=== PATIENT | female | born 1995 | race Two or more races ===

== ENCOUNTER 2024-06-26 13:20 | Inpatient (IN) ==
[2024-06-26] MEDS: ALBUT/IPRATROP 3MG/0.5MG NEB 3 ML VIAL NEB STA ×2 (14:10→18:14)
[2024-06-26 14:38] LABS: Hemoglobin 14.8 g/dl (12.0-16.0); Mean Corpuscular Hemoglobin 30.4 pg (25.0-34.0); Mean Corpuscular Hgb Conc 34.4 g/dL (32.0-36.0); Mean Corpuscular Volume 88.3 fL (80.0-100.0); Mean Platelet Volume 12.1 fL (9.4-12.4); Platelet Count 257 K/uL (130-400); RDW Coefficient of Variation 12.9 % (11.5-14.5); RDW Standard Deviation 41.1 fL (36.4-46.3); Red Blood Count 4.87 M/uL (4.20-5.40); White Blood Count 31.86 K/ul (4.8-10.8)
--- NOTE | 2024-06-26 14:38 | Emergency Department Note ---
ED Provider Note History of Present Illness Chief Complaint: Shortness of Breath/Dyspnea Stated Complaint: SOB/TROUBLE BREATHING, CHEST PAIN Time Seen by Provider: 06/26/24 13:51 Source: patient Mode of arrival: ambulatory Limitations: no limitations This patient is a 28-year-old female who presents to the emergency department for evaluation of shortness of breath/chest pain. Patient reports that she woke up around 4 AM this morning with some central chest pain. At that time she noticed it was difficult for her to breathe. She states that she used her inhaler and things seemed to settle down at the time, but returned after she woke up and tried to go to work. She states that the symptoms have been constant and she has trouble walking short distances due to the shortness of breath. She reports that she received a breathing treatment at an outpatient office and they told her to come to the ER. She denies any history of asthma or other pulmonary issues. She states that she was seen here about 2 weeks ago due to an upper respiratory infection/bronchitis and was treated with antibiotics. She is still on steroids for this currently. She was feeling better for a while. She denies any recent long travel. No history of blood clots or cardiac history. She has not noticed any fevers. Home Medications Medication Instructions Recorded Confirmed Type albuterol sulfate 90 mcg/actuation 2 puff inhalation Q4R PRN 06/28/24 Rx aerosol inhaler (Ventolin HFA) shortness of breath or wheezing #6.7 grams budesonide-formoterol HFA 160 2 inh inhalation BID #10.2 grams 06/28/24 Rx mcg-4.5 mcg/actuation aerosol inhaler (Symbicort) cetirizine 10 mg tablet 10 mg PO DAILY #30 tabs 06/28/24 Rx ipratropium 0.5 mg-albuterol 3 mg 3 ml inhalation Q6H PRN wheezing 06/28/24 Rx (2.5 mg base)/3 mL nebulization #90 mL soln montelukast 10 mg tablet 10 mg PO HS #30 tabs 06/28/24 Rx prednisone 10 mg tablet 10 mg PO DIRECTED #30 tabs 06/28/24 Rx Allergies Allergy/AdvReac Type Severity Reaction Status Date / Time nickel Allergy Rash Verified 06/26/24 17:37 Past Med/Surg History Problem List (Updated 06/27/24 @ 10:55 by Tanner Gannon MD) Subacute cough Asthma exacerbation History of frequent upper respiratory infection Wheezing Medical History No pertinent past medical history Social History Smoking Status: Never smoker Hx Alcohol Use: No Hx Substance Use: No Preferred Language: Urdu Communication Ability: Effective 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 Beliefs That Will Affect Care: None Current Living Situation: Spouse Feels Safe at Home: Yes Assistive Devices: Glasses Physical Exam Vital Signs Vital Signs - 24 hr 06/26/24 13:21 06/26/24 13:21 06/26/24 13:51 Temperature 36.6 C Temperature Source Temporal Artery Scan Pulse Rate 100 H Pulse Rate from SpO2 Sensor Respiratory Rate 18 Respiratory Effort / Characteristics Non-Labored Spontaneous Respiratory Depth Normal Respiratory Pattern Regular Blood Pressure 111/70 Blood Pressure Mean 83 Pulse Oximetry 97 Oxygen Delivery Method Room Air Room Air Sepsis Recent Fever Within 48 Hours No Sepsis New/Unexplained Change in Mental Status N/A Sepsis Action Taken by Nursing No Action Required 06/26/24 14:05 06/26/24 14:33 06/26/24 14:33 Temperature Temperature Source Pulse Rate 96 H 101 H Pulse Rate from SpO2 Sensor 103 H Respiratory Rate 19 Respiratory Effort / Characteristics Respiratory Depth Respiratory Pattern Blood Pressure Blood Pressure Mean Pulse Oximetry 95 96 Oxygen Delivery Method Room Air Sepsis Recent Fever Within 48 Hours Sepsis New/Unexplained Change in Mental Status Sepsis Action Taken by Nursing VITALS: Vitals are noted on the nurse's note and reviewed by myself. GENERAL: This is a 28-year-old female, uncomfortable appearing, tachypneic. SKIN: The skin was without rashes. EARS: External auditory canals clear, tympanic membranes pearly mason without erythema or effusion bilaterally. EYES: Pupils equal round and reactive to light and accommodation. NOSE: Patent, turbinates without inflammation or discharge. MOUTH: Mucous membranes moist. Tonsils are not enlarged. Pharynx without erythema or exudate. NECK: Supple without nuchal rigidity. No lymphadenopathy. HEART: Regular rate and rhythm without murmurs gallops or rubs. LUNGS: Tachypneic. Lungs are clear to auscultation bilaterally without wheezes, rales or rhonchi. No retractions or accessory muscle use. NEURO: Patient was alert and oriented to person place and time. Course Administered Medications Discontinued Medications Acetaminophen (Acetaminophen 500 Mg Tab) 1,000 mg PO NOW STA Stop: 06/26/24 16:04 Last Admin: 06/26/24 16:07 Dose: 1,000 mg Documented By: AGUSTO Albuterol (Albut/Ipratrop 3mg/0.5mg Neb 3 Ml Vial) 3 ml NEB NOW STA; Protocol Stop: 06/26/24 14:02 Last Admin: 06/26/24 14:10 Dose: 3 ml Documented By: LANDON Albuterol (Albut/Ipratrop 3mg/0.5mg Neb 3 Ml Vial) 3 ml NEB NOW STA; Protocol Stop: 06/26/24 18:05 Last Admin: 06/26/24 18:14 Dose: 3 ml Documented By: LANDON Albuterol (Albut/Ipratrop 3mg/0.5mg Neb 3 Ml Vial) 3 ml NEB Q6R YULY; Protocol Stop: 07/26/24 20:52 Last Admin: 06/28/24 06:57 Dose: 3 ml Documented By: Admin: 06/28/24 00:38 Dose: 3 ml Documented By: Admin: 06/27/24 19:34 Dose: Not Given Documented By: Admin: 06/27/24 13:30 Dose: 3 ml Documented By: HERB(2) Admin: 06/27/24 07:15 Dose: 3 ml Documented By: HERB(2) Admin: 06/27/24 01:43 Dose: 3 ml Documented By: Admin: 06/26/24 21:15 Dose: 3 ml Documented By: TATE Azithromycin (Azithromycin 250 Mg Tab) 500 mg PO NOW ONE Stop: 06/26/24 18:12 Last Admin: 06/26/24 18:40 Dose: 500 mg Documented By: LANDON Azithromycin (Azithromycin 250 Mg Tab) [facility] [place] Stop: 07/01/24 08:59 Last Admin: 06/28/24 08:03 Dose: 250 mg Documented By: Admin: 06/27/24 07:29 Dose: 250 mg Documented By: CHAPARRO Budesonide (Budesonide 0.5 Mg/2 Ml Vial (Pulmicort)) 0.5 mg NEB BIDR [facility] Stop: 07/27/24 18:59 Last Admin: 06/28/24 06:57 Dose: 0.5 mg Documented By: Admin: 06/27/24 19:34 Dose: 0.5 mg Documented By: HERB Budesonide (Budesonide 0.5 Mg/2 Ml Vial (Pulmicort)) 0.5 mg NEB ONE ONE Stop: 06/27/24 11:01 Last Admin: 06/27/24 11:28 Dose: Not Given Documented By: EMCoco(2) Cetirizine HCl (Cetirizine Hcl 10 Mg Tablet) 10 mg PO DAILY [facility] Stop: 07/27/24 11:14 Last Admin: 06/28/24 08:03 Dose: 10 mg Documented By: Admin: 06/27/24 12:05 Dose: 10 mg Documented By: CHAPARRO Dextromethorphan Polymer Complex (Dextromethorphan Polymr Complx 30 Mg/5 Ml Udp) 30 mg PO ONE STA Stop: 06/26/24 18:20 Last Admin: 06/26/24 18:56 Dose: 30 mg Documented By: LANDON Fluticasone/Vilanterol (Fluticasone/Vilanterol 100/25mcg 14 Puffs/Inhaler) 1 puffs INH DAILY [facility]; Protocol Stop: 07/27/24 08:59 Last Admin: 06/27/24 07:29 Dose: 1 puffs Documented By: CHAPARRO Formoterol Fumarate (Formoterol 20 Mcg/2 Ml Vial) 20 mcg NEB BIDR YULY Stop: 07/27/24 10:59 Last Admin: 06/28/24 06:57 Dose: 20 mcg Documented By: Admin: 06/27/24 19:34 Dose: 20 mcg Documented By: Admin: 06/27/24 11:28 Dose: Not Given Documented By: EMCoco(2) Guaifenesin/Codeine Phosphate (Guaifenesin/Codeine 100mg/10mg 5ml Udc) 5 ml PO Q6H PRN PRN Reason: Cough Stop: 07/27/24 10:54 Last Admin: 06/27/24 21:15 Dose: 5 ml Documented By: Admin: 06/27/24 11:04 Dose: 5 ml Documented By: CHAPARRO Cefepime HCl (Maxipime 2000mg) 2,000 mg in 20 mls @ 5 mls/min IV NOW STA Stop: 06/26/24 16:24 Last Admin: 06/26/24 16:55 Dose: 5 mls/min Documented By: LANDON Sodium Chloride (Nss) 1,000 mls @ 999 mls/hr IV .Q1H1M ONE Stop: 06/26/24 17:50 Last Infusion: 06/26/24 18:43 Dose: Infused Documented By: Admin: 06/26/24 16:54 Dose: 999 mls/hr Documented By: LANDON Magnesium Sulfate/Dextrose (Magnesium Sulfate / D5w) 1 gm in 100 mls @ 50 mls/hr IV Q2H YULY Stop: 06/26/24 21:44 Last Infusion: 06/26/24 22:24 Dose: Infused Documented By: Admin: 06/26/24 19:50 Dose: 50 mls/hr Documented By: Infusion: 06/26/24 19:50 Dose: Infused Documented By: Admin: 06/26/24 18:03 Dose: 50 mls/hr Documented By: LANDON Potassium Chloride (K Brody / Wtr) 10 meq in 100 mls @ 100 mls/hr IV Q1H YULY Stop: 06/26/24 20:44 Last Infusion: 06/26/24 23:19 Dose: Infused Documented By: Admin: 06/26/24 22:19 Dose: 100 mls/hr Documented By: Infusion: 06/26/24 20:33 Dose: Infused Documented By: Admin: 06/26/24 19:10 Dose: 100 mls/hr Documented By: Infusion: 06/26/24 19:03 Dose: Infused Documented By: Admin: 06/26/24 18:03 Dose: 100 mls/hr Documented By: LANDON Methylprednisolone 40 mg/ (Syringe) 0.64 mls @ 1.5 mls/min IV BID YULY Stop: 07/26/24 20:59 Last Admin: 06/28/24 08:03 Dose: 1.5 mls/min Documented By: Admin: 06/27/24 21:15 Dose: 1.5 mls/min Documented By: Admin: 06/27/24 07:29 Dose: 1.5 mls/min Documented By: Admin: 06/26/24 22:28 Dose: 1.5 mls/min Documented By: FABIO Ioversol (Optiray 320 125ml) 120 ml IV ONCE ONE Stop: 06/26/24 15:06 Last Admin: 06/26/24 15:06 Dose: 120 ml Documented By: WYATT Menthol (Cough Drop (Sugar Free) Marissa 24 Marissa/1 Box) Confirm Administered Dose 24 marissa BUCCAL .STK-MED ONE Stop: 06/27/24 11:04 Last Admin: 06/27/24 11:04 Dose: 24 marissa Documented By: CHAPARRO Montelukast Sodium (Montelukast Sodium 10 Mg Tablet) 10 mg PO HS YULY Stop: 07/27/24 20:59 Last Admin: 06/27/24 21:15 Dose: 10 mg Documented By: BG Phenol (Chloraseptic (Phenol) 1.4% Soln 180 Ml Btl) 1 sprays MT Q2H PRN PRN Reason: throat pain Stop: 07/28/24 07:27 Last Admin: 06/28/24 09:37 Dose: 1 sprays Documented By: JESSICA Potassium Chloride (Potassium Chloride Crtab 20 Meq Tabcr) 40 meq PO NOW STA Stop: 06/26/24 17:46 Last Admin: 06/26/24 18:02 Dose: 40 meq Documented By: LANDON Medical Decision Making Differential Diagnosis Reactive airway disease, pneumonia, pneumothorax, COPD, CHF, infections, cardiac ischemia, pulmonary embolism, musculoskeletal, gastrointestinal, as well as other pathologies. Laboratory Data Attestation: I reviewed the patient's lab results. 06/28/24 09:01 06/28/24 09:01 Lab Results 06/26/24 06/26/24 Range/Units 14:10 16:55 Procalcitonin 0.16 (0-0.5) ng/ml Urine Color Yellow Urine Appearance Clear (Clear) Urine pH 7.5 (4.5-7.5) Ur Specific [place] > 1.045 H (1.000-1.030) Urine Protein Negative (Negative) Urine Glucose (UA) Negative (Negative) Urine Ketones Negative (Negative) Urine Blood Negative (Negative) Urine Nitrite Negative (Negative) Urine Bilirubin Negative (Negative) Urine Urobilinogen Negative (Negative) Ur Leukocyte Esterase Negative (Negative) Adenovirus (PCR) Not Detected (NotDetected) B. pertussis DNA (PCR) Not Detected (NotDetected) B.parapertussis DNA PCR Not Detected (NotDetected) C. pneumoniae DNA (PCR) Not Detected (NotDetected) Coronavirus OC43 (PCR) Not Detected (NotDetected) Coronavirus HKU1 (PCR) Not Detected (NotDetected) Coronavirus 229E (PCR) Not Detected (NotDetected) SARS-CoV-2 (PCR) Not Detected (NotDetected) Coronavirus NL63 (PCR) Not Detected (NotDetected) Human Metapneumovir PCR Not Detected (NotDetected) Influenza Type A (PCR) Not Detected (NotDetected) Influenza Type B (PCR) Not Detected (NotDetected) M. pneumoniae (PCR) Not Detected (NotDetected) Parainfluenza 1 (PCR) Not Detected (NotDetected) Parainfluenza 2 (PCR) Not Detected (NotDetected) Parainfluenza 3 (PCR) Not Detected (NotDetected) Parainfluenza 4 (PCR) Not Detected (NotDetected) RSV (PCR) Not Detected (NotDetected) Entero/Rhino (PCR) Not Detected (NotDetected) Imaging Data Attestation: I personally reviewed and interpreted this imaging study as follows: Radiologist's Impression: Chest CTA 06/26/24 14:00 CT angio chest PE protocol CT DOSE: 503.29 mGy.cm HISTORY: 28 years-old Female with dyspnea, chest pain, tachycardia. Acute shortness breath with tachycardia and chest pain TECHNIQUE: Multiple CTA images of the chest were obtained after the intravenous administration of 120 ml Optiray. Coronal and sagittal MIPS were obtained from the axial data set and were submitted for review. All measurements were obtained according to NASCET criteria. A dose lowering technique was utilized adhering to the principles of ALARA. COMPARISON: Chest radiograph 06/11/2024 FINDINGS: CTA: Heart is normal in size. No pericardial effusion. Unremarkable thoracic aorta. The segmental and subsegmental pulmonary arterial branches are not well evaluated secondary to respiratory motion artifact and contrast bolus timing. No central pulmonary emboli are seen. CT CHEST: Unremarkable thyroid. No pathologically enlarged lymph nodes. The lungs are hypoinflated. Small pleural effusions. No pneumothorax. Bibasilar linear consolidative and patchy groundglass densities. Central airways are patent. No acute upper abdominal abnormality. Unremarkable soft tissues. No acute fracture. IMPRESSION: 1. Limited exam as above. No central pulmonary emboli identified. 2. Small pleural effusions with bibasilar opacities favoring atelectasis. Pneumonia considered less likely. 3. No lymphadenopathy. ACT 112: Negative or not required by law. The above report was generated using voice recognition software. It may contain grammatical, syntax or spelling errors. Electronically signed by: Tobin Hassan M.D. 06/26/2024 3:29 PM MDM Narrative This patient is a 28-year-old female who presents to the emergency department for evaluation of shortness of breath. Patient seen here a few weeks ago and diagnosed with bronchitis at that time. She was treated with antibiotics and subsequently was treated with steroids by an outpatient provider. Her workup today includes a CT angiogram of the chest which is negative for PE or other acute findings. However, her labs are significant for a leukocytosis of 31,000. Certainly her white blood cell count may be elevated by steroids but this elevation is concerning. Given the patient's persistent symptoms and this leukocytosis I do feel further workup is warranted. Case was discussed with the hospitalist service who agreed to evaluate the patient for further care. She was treated with a DuoNeb in the ER with improvement. Discharge Plan Visit Data Chief Complaint: Shortness of Breath/Dyspnea Stated Complaint: SOB/TROUBLE BREATHING, CHEST PAIN ED Provider: Josh Cerrato ED Midlevel Provider: Alida Duong Patient Disposition: Admitted As Inpatient Discharge Instructions Interventions: ED Discharge Assessment Last Done: 06/26/24 20:29
[2024-06-26 14:46] LABS: Albumin Globulin Ratio 1.1 (0.9-2); Albumin Level 3.9 gm/dl (3.4-5.0); BUN Creatinine Ratio 16.3 (10-20); Bilirubin,Total 0.9 mg/dl (0.2-1.0); Calcium 9.1 mg/dl (8.6-10.3); Globulin 3.5 gm/dl (2.5-4.0); Total Protein 7.4 gm/dl (6.0-8.3)
[2024-06-26 14:52] LABS: Troponin I High Sensitivity 5.4 pg/ml (0-14)
[2024-06-26 14:54] LABS: Basophils # (auto) 0.09 K/uL (0.00-0.20); Basophils % (auto) 0.3 %; Eosinophils # (auto) 0.01 K/uL (0.00-0.50); Immature Granulocytes % (auto) 0.9 %; Lymphocytes # (auto) 5.21 K/uL (1.20-3.40); Lymphocytes % (auto) 16.4 %; Monocytes # (auto) 1.52 K/uL (0.11-0.59); Monocytes % (auto) 4.8 %; Neutrophils # (auto) 24.73 K/uL (1.40-6.50); Neutrophils % (auto) 77.6 %
[2024-06-26] MEDS: OPTIRAY 320 125ml IV ONE (15:06)
[2024-06-26 15:10] LABS: Adenovirus PCR Not Detected (NotDetected); Bordetella parapertussis PCR Not Detected (NotDetected); Bordetella pertussis PCR Not Detected (NotDetected); Chlamydia pneumoniae PCR Not Detected (NotDetected); Coronavirus 229E PCR Not Detected (NotDetected); Coronavirus CoV-2 (COVID19)PCR Not Detected (NotDetected); Coronavirus HKU1 PCR Not Detected (NotDetected); Coronavirus NL63 PCR Not Detected (NotDetected); Coronavirus OC43PCR Not Detected (NotDetected); Human Metapneumovirus PCR Not Detected (NotDetected); Influenza A PCR Not Detected (NotDetected); Influenza B PCR Not Detected (NotDetected); Mycoplasma pneumoniae PCR Not Detected (NotDetected); Parainfluenza Virus 1 PCR Not Detected (NotDetected); Parainfluenza Virus 2 PCR Not Detected (NotDetected); Parainfluenza Virus 3 PCR Not Detected (NotDetected); Parainfluenza Virus 4 PCR Not Detected (NotDetected); Respiratory Syncytial VirusPCR Not Detected (NotDetected); Rhinovirus/Enterovirus PCR Not Detected (NotDetected)
--- NOTE | 2024-06-26 15:31 | CT Scan Report ---
CT angio chest PE protocol CT DOSE: 503.29 mGy.cm HISTORY: 28 years-old Female with dyspnea, chest pain, tachycardia. Acute shortness breath with tac hycardia and chest pain TECHNIQUE: Multiple CTA images of the chest were obtained after the intravenous administration of 120 ml Optiray. Coronal and sagittal MIPS were obtained from the axial data set and were submitted for review. All measurements were obtained according to NASCET criteria. A dose lowering technique was u tilized adhering to the principles of ALARA. COMPARISON: Chest radiograph 06/11/2024 FINDINGS: CTA: Heart is normal in size. No pericardial effusion. Unremarkable thoracic aorta. The segmental and subs egmental pulmonary arterial branches are not well evaluated secondary to respiratory motion artifact and contrast bolus timing. No central pulmonary emboli are seen. CT CHEST: Unremarkable thyroid. No pathologically enlarged lymph nodes. The lungs are hypoinflated. Small pleur al effusions. No pneumothorax. Bibasilar linear consolidative and patchy groundglass densities. Centr al airways are patent. No acute upper abdominal abnormality. Unremarkable soft tissues. No acute frac ture. IMPRESSION: 1. Limited exam as above. No central pulmonary emboli identified. 2. Small pleural effusions with bibasilar opacities favoring atelectasis. Pneumonia considered less l ikely. 3. No lymphadenopathy. ACT 112: Negative or not required by law. The above report was generated using voice recognition software. It may contain grammatical, syntax o r spelling errors. Electronically signed by: Tobin Hassan M.D. 06/26/2024 3:29 PM
[2024-06-26] MEDS: ACETAMINOPHEN 500 MG TAB PO STA (16:07)
--- NOTE | 2024-06-26 16:15 | Electrocardiogram Report ---
Test Reason : Blood Pressure : */* mmHG Vent. Rate : 96 BPM Atrial Rate : 96 BPM P-R Int : 142 ms QRS Dur : 72 ms QT Int : 334 ms P-R-T Axes : 50 74 18 degrees QTcB Int : 421 ms Normal sinus rhythm Normal ECG When compared with ECG of 11-Jun-2024 15:54, No significant change was found Confirmed by Carlos Lara ([id number]) on 06/26/2024 4:15:14 PM Referred By: REFERRED SELF Confirmed By: Carlos Lara
[2024-06-26 16:35] LABS: C Reactive Protein 3.1 mg/dl (0-0.5)
[2024-06-26] MEDS: SODIUM CHLORIDE 0.9% 1,000 ML IV ONE (16:54)
[2024-06-26] MEDS: CEFEPIME 2000MG 2,000 MG/20 ML SYR IV STA (16:55)
[2024-06-26 17:06] LABS: Appearance Urine Clear (Clear); Bilirubin Urine Negative (Negative); Blood Urine Negative (Negative); Color Urine Yellow; Glucose Urine UA Negative (Negative); Ketones Urine Negative (Negative); Leukocyte Esterase Urine Negative (Negative); Nitrite Urine Negative (Negative); Protein Urine Negative (Negative); Specific Gravity Urine > 1.045 (1.000-1.030); Urobilinogen Urine Negative (Negative); pH Urine 7.5 (4.5-7.5)
[2024-06-26] MEDS: POTASSIUM CHLORIDE CRTAB 20 MEQ TABCR PO STA (18:02)
[2024-06-26] MEDS: MAGNESIUM SULFATE / D5W 1 GM/100 ML BAG IV SCH (18:03)
[2024-06-26] MEDS: POTASSIUM CHLORIDE / WTR 10 MEQ/100 ML PLCT IV SCH (18:03)
--- NOTE | 2024-06-26 18:05 | History & Physical Report ---
Date of Service June 26, 2024 Assessment & Plan (1) Wheezing: Plan: Presenting with shortness of breath and chest tightness. Unclear why patient has been so refractory to treatment. Completed course of Augmentin and Azithromycin. Was on a prednisone taper - currently on 20 mg. Leukocytosis and elevated CRP. Given cefepime in the ED. Blood cultures drawn. Normal procal. May be an underlying reactive airway disease. Was started on Symbicort by PCP which has helped some. Consulted pulm - appreciate recs azithromycin x 5 for anti-inflammatory effect with negative procal would hold on additional abx for now schedule duonebs Q6H, incentive spirometry, PRN albuterol puffs, Breo QD methyl pred 40 mg BID gave 2 grams of Mg pulm consult - appreciate recs (2) Leukocytosis: Plan: Likely multifactorial with ongoing inflammatory process and recent steroid use. Neutrophilic predominance with left shift. Eosinophils normal. Will trend (3) Chest pain: Plan: Resolved after neb. No PE on CTA. Likely related to bronchospasms - management as above. (4) History of frequent upper respiratory infection: Plan: See above (5) Shortness of breath: Plan: See above (6) Bronchitis: Plan: See above Plan Code status: full DVT ppx: SCDs, ambulation FENGI: regular Dispo: tele unit History of Present Illness Chief Complaint: SOB Primary Care Provider: Sasha Zavala PA-C 28 y/o female here for evaluation of shortness of breath. Patient was diagnosed with coronavirus 06/11/2024 and bronchitis. Was treated with 10 days of Augmentin, prednisone taper, and Azithromycin. Completed antibiotic course Monday. On 20 mg tabs of prednisone at present. Was feeling better, but symptoms worsened overnight. She woke up with chest pain/tightness, wheezing, and trouble breathing. Did have some improvement with albuterol inhaler, but symptoms returned this morning. She was seen by Tuyet Whatley at [facility] earlier today and was given a neb without significant improvement in symptoms, which prompted her evaluation in the ED. Chest tightness/pain has resolved. No fevers, but has had chills. Patient with frequent URIs over the last year since having Covid in April 2023. Diagnosed with OG coronavirus with bronchitis in May and has not gotten much better. Patient previously healthy. No personal or family history of asthma or atopic triad. Was recently started on Symbicort by PCP for presumed underlying reactive airway disease. Allergies Allergy/AdvReac Type Severity Reaction Status Date / Time nickel Allergy Rash Verified 06/26/24 17:37 Home Medications Medication Instructions Recorded Confirmed Type budesonide-formoterol HFA 80 2 puff inhalation BID 06/26/24 06/26/24 History mcg-4.5 mcg/actuation aerosol inhaler prednisone 10 mg tablet See Rx Instructions .Route .COMPLEX 06/26/24 06/26/24 History Past Med/Surg History Problem List (Updated 06/27/24 @ 10:55 by Tanner Gannon MD) Subacute cough Asthma exacerbation History of frequent upper respiratory infection Wheezing Medical History No pertinent past medical history Social History Smoking Status: Never smoker Hx Alcohol Use: No Hx Substance Use: No Preferred Language: Romansh Communication Ability: Effective 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 Mechanic Required: No Beliefs That Will Affect Care: None Current Living Situation: Spouse Feels Safe at Home: Yes Safety Concerns: Feels Safe At This Time Assistive Devices: Glasses Review of Systems 2 Review of Systems: See HPI Physical Exam 2 Physical Exam: Gen: well appearing patient in NAD HEENT: AT NC MMM Resp: tachypneic, diffuse wheezing, decreased air movement throughout, frequent coughing, scattered rhonchi with some crackles as well, mildly increased work of breathing CV: RRR no m/r/g clinically well perfused Abd: non-distended MSK: no obvious deformities Skin: no rashes or bruising Neuro: alert and oriented Psych: appropriate mood and affect Results & Data Results & Data Laboratory Results 06/26/24 Unknown 06/26/24 Unknown Diagnostic Findings Chest CTA 06/26/24 14:00 FINDINGS: CTA: Heart is normal in size. No pericardial effusion. Unremarkable thoracic aorta. The segmental and subsegmental pulmonary arterial branches are not well evaluated secondary to respiratory motion artifact and contrast bolus timing. No central pulmonary emboli are seen. CT CHEST: Unremarkable thyroid. No pathologically enlarged lymph nodes. The lungs are hypoinflated. Small pleural effusions. No pneumothorax. Bibasilar linear consolidative and patchy groundglass densities. Central airways are patent. No acute upper abdominal abnormality. Unremarkable soft tissues. No acute fracture. IMPRESSION: 1. Limited exam as above. No central pulmonary emboli identified. 2. Small pleural effusions with bibasilar opacities favoring atelectasis. Pneumonia considered less likely. 3. No lymphadenopathy. Code Status & VTE Plan VTE Prophylaxis Plan VTE Prophylaxis will be ordered: Yes Supervising Physician Co-Signing Physician Notes I personally saw and examined the patient. I independently reviewed the labs, EKG, imaging, problem list, medication list, past medical history and family history. I verified all mendez points and agree with resident physician Dr Betina Lacy MD with the following exceptions and/or additions: 28 year old with repeated URI symptoms since COVID infection. Currently not getting better despite maintenance inhalers, prednisone and antibiotics O/E HS increased rate, regular rhythm, no murmurs, frequent coughing, expiratory wheezing posteriorly, no reduced breath sounds or crackles, Abdo SNT A/P Suspected underlying reactive airway disease - dextromethorphan for cough, duonebs, Solu-medrol, contiue symbicort or hospital formulary equivalent, azithromycin for atypical organisms, agree with pulm consult Resident Activity Tracking Resident Involvement: Resident Care Provided Care Provided: Adult Hospital Medicine (2) Leukocytosis Leukocytosis type: unspecified Qualified Code(s): D72.829 - Elevated white blood cell count, unspecified
[2024-06-26 18:12] LABS: Magnesium 1.9 mg/dl (1.7-2.4)
[2024-06-26] MEDS: AZITHROMYCIN 250 MG TAB PO ONE (18:40)
[2024-06-26] MEDS: DEXTROMETHORPHAN POLYMR COMPLX 30 MG/5 ML UDP PO STA (18:56)
[2024-06-26] MEDS ORDERED: ONDANSETRON INJ 2 MG/ML 2 ML VIAL IV PRN (20:53)
[2024-06-26] MEDS ORDERED: ACETAMINOPHEN 325 MG TAB PO PRN (20:53)
[2024-06-26] MEDS ORDERED: POLYETHYLENE (MIRALAX) 17 GM PACK PO PRN (20:53)
[2024-06-26] MEDS ORDERED: ALBUTEROL HFA 8 GM INHALER INH PRN (20:53)
[2024-06-26] MEDS ORDERED: methylPREDNISolone 125 MG/2 ML VIAL IV SCH (21:00)
[2024-06-26] MEDS: ALBUT/IPRATROP 3MG/0.5MG NEB 3 ML VIAL NEB SCH (21:15)
[2024-06-26] MEDS: methylPREDNISolone 40 MG in SYRINGE 0 ML IV SCH (22:28)
[2024-06-27] MEDS: FLUTICASONE/VILANTEROL 100/25MCG 14 PUFFS/INHALER INH SCH (07:29)
[2024-06-27] MEDS: AZITHROMYCIN 250 MG TAB PO SCH (07:29)
[2024-06-27 07:40] LABS: Basophils # (auto) 0.03 K/uL (0.00-0.20); Basophils % (auto) 0.2 %; Eosinophils # (auto) 0.01 K/uL (0.00-0.50); Eosinophils % (auto) 0.1 %; Hematocrit (blood only) 42.6 % (37.0-47.0); Hemoglobin 14.6 g/dl (12.0-16.0); Immature Granulocytes % (auto) 0.6 %; Lymphocytes # (auto) 1.56 K/uL (1.20-3.40); Mean Corpuscular Hemoglobin 30.7 pg (25.0-34.0); Mean Corpuscular Hgb Conc 34.3 g/dL (32.0-36.0); Mean Corpuscular Volume 89.7 fL (80.0-100.0); Mean Platelet Volume 12.3 fL (9.4-12.4); Monocytes # (auto) 0.19 K/uL (0.11-0.59); Monocytes % (auto) 1.1 %; Neutrophils # (auto) 15.53 K/uL (1.40-6.50); Platelet Count 257 K/uL (130-400); RDW Coefficient of Variation 13.1 % (11.5-14.5); RDW Standard Deviation 42.5 fL (36.4-46.3); Red Blood Count 4.75 M/uL (4.20-5.40); White Blood Count 17.42 K/ul (4.8-10.8)
[2024-06-27 08:01] LABS: BUN Creatinine Ratio 13.8 (10-20); Creatinine Clr Calc Pharmacy 97.6 ml/min; Potassium 4.9 mmol/L (3.5-5.1)
--- NOTE | 2024-06-27 10:59 | Pulmonary Consultation ---
Date of Consultation June 27, 2024 Assessment & Plan (1) Asthma exacerbation: I suspect the patient has underlying asthma and possible tracheobronchitis. She will need outpatient PFTs, exhaled nitric oxide testing and allergy testing. Recommend she follow-up with allergy and immunology and also pulmonary medicine. For the time being, agree with IV steroids and likely transition to p.o. steroids starting tomorrow. Will transition her from powdered Breo Ellipta inhaler to nebulized budesonide and formoterol. Upon discharge, I would recommend escalating her therapy to high-dose Symbicort 160/4.52 puffs twice daily. Will also add Singulair and Zyrtec to her regimen. Agree with azithromycin to cover for atypical organisms. Asthma severity: unspecified severity Asthma persistence: persistent Qualified Code(s): J45.901 - Unspecified asthma with (acute) exacerbation (2) Subacute cough: Likely secondary to poorly controlled asthma. Codeine and guaifenesin ordered for refractory cough. Plan Thanks for the consult. Will follow. History of Present Illness Reason for Consultation: "Multiple URIs, wheezing, ?underlying asthma" Attending Physician: Tala Zhao MD History of Present Illness 28-year-old female with no significant past medical history presenting for severe cough that has been ongoing for several weeks. She notes that her cough became severely worse last night at around 4 AM which prompted her hospitalization. She is not producing much phlegm. She had a coronavirus illness last month and since that time has had ongoing cough. She denies any obvious wheezing. She does have shortness of breath associate with a cough. She has occasional pain in her chest associate with a cough. She denies any prior history of asthma or lung disease. She has 2 cats in her home. 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 She has been on a prolonged prednisone taper at home and was prescribed Symbicort 80/4.5. She is a lifelong non-smoker. She denies vaping or e-cigarettes. Labs generally unremarkable aside for profound leukocytosis related to steroids. Chest CTA was limited due to motion. Small areas of basilar atelectasis noted. No lymphadenopathy. No obvious infiltrates or nodules. No obvious pleural effusions. No significant eosinophilia noted on labs. Respiratory viral panel this a dmission was negative. Allergies Allergy/AdvReac Type Severity Reaction Status Date / Time nickel Allergy Rash Verified 06/26/24 17:37 Home Medications Medication Instructions Recorded Confirmed Type budesonide-formoterol HFA 80 2 puff inhalation BID 06/26/24 06/26/24 History mcg-4.5 mcg/actuation aerosol inhaler prednisone 10 mg tablet See Rx Instructions .Route .COMPLEX 06/26/24 06/26/24 History Patient History Medical History No pertinent past medical history Social History Smoking Status: Never smoker Hx Alcohol Use: No Hx Substance Use: No Preferred Language: Sudanese Communication Ability: Effective Trust Operations Assistant Required: No Beliefs That Will Affect Care: None Current Living Situation: Spouse Feels Safe at Home: Yes Safety Concerns: Feels Safe At This Time Assistive Devices: Glasses Review of Systems Review of Systems: All systems reviewed & are unremarkable except as noted in HPI & below Physical Exam Physical Exam: Constitutional: Patient appears to be of their stated age. Patient is in no apparent distress. Patient is well-developed. Eyes: Pupils are equal round and reactive to light. Conjunctivae are normal. Anicteric sclera. Ears nose, mouth and throat: No perioral cyanosis. Neck: Trachea is midline. Visual inspection is normal. Respiratory: Frequently coughing. Clear to auscultation bilaterally. No use of accessory muscles. No significant clubbing noted. Cardiovascular: Regular rate and rhythm. No murmurs. No edema. Gastrointestinal: Normal bowel sounds, soft, nontender and nondistended. No hepatosplenomegaly noted. Musculoskeletal: No cyanosis. Patient is able to move all extremities. Strength is 5 out of 5 in the upper and lower extremities. Skin: No rashes, warm dry and intact. Neurologic: No obvious focal neurological deficits seen. Psychiatric: Alert and oriented x3 with a euthymic affect. Results & Data Results & Data Vital Signs (Past 12 Hours) Vital Signs Temp Pulse Pulse Pulse Resp BP Pulse Ox 06/27/24 08:00 68 06/27/24 08:00 06/27/24 07:48 37 C 82 18 99/64 L 94 06/27/24 07:16 18 97 06/27/24 03:49 36.7 C 88 20 112/77 96 06/27/24 01:43 89 16 94 06/27/24 00:00 95 H 06/26/24 23:13 36.9 C 69 20 92/55 L 95 O2 Del Method 06/27/24 08:00 06/27/24 08:00 Room Air 06/27/24 07:48 Room Air 06/27/24 07:16 Room Air 06/27/24 03:49 Room Air 06/27/24 01:43 Room Air 06/27/24 00:00 06/26/24 23:13 Room Air PG Care Time/CCT Total # of Minutes Spent Total Time Spent with Patient: Total time spent is greater than 50% in coordination of care (as documented) at patient's floor/unit and/or counseling patient: Coding Level of Care Code 15256 IN/OBS CONSULT LVL 4,60M Diagnoses Exacerbation of persistent asthma, unspecified asthma severity J45.901 Asthma severity: unspecified severity Asthma persistence: persistent Subacute cough R05.2
[2024-06-27] MEDS: guaiFENesin/CODEINE 100MG/10MG 5ML UDC PO PRN (11:04)
[2024-06-27] MEDS: COUGH DROP (SUGAR FREE) LOZ 24 LOZ/1 BOX BUCCAL ONE (11:04)
[2024-06-27] MEDS: FORMOTEROL 20 MCG/2 ML VIAL NEB SCH (11:28)
[2024-06-27] MEDS: BUDESONIDE 0.5 MG/2 ML VIAL (PULMICORT) NEB ONE (11:28)
[2024-06-27] MEDS: CETIRIZINE HCL 10 MG TABLET PO SCH (12:05)
--- NOTE | 2024-06-27 18:44 | Hospitalist Progress Note ---
Date of Service June 27, 2024 Assessment & Plan (1) Asthma exacerbation: (2) Bronchitis: (3) Wheezing: (4) Leukocytosis: (5) Chest pain: Plan Acute asthma exacerbation - Tracheobronchitis Presenting with shortness of breath and chest tightness. Recent treatment with course of Augmentin and Azithromycin. Was on a prednisone taper - last 2 days of 20 mg left. Was also started on Symbicort by PCP which has helped some. In ED - Blood cx negative. Normal procal. Received IV mag and dose of cefepime and zithromycin. Seen by pulmonary. schedule duonebs Q6H, PRN albuterol puffs, Breo QD - switched to nebs. (high-dose Symbicort 160/4.52 puffs twice daily on discharge) methyl pred 40 mg BID - to switch PO tomorrow. Added singulair and zyrtec. codiene cough syrup. Should f/u with allergy clinic and pulmonary as outpatient. Needs outpatient PFT, exhaled NO test and allergy clinic. WBC elevation from recent steroids and possibly reactive as well. Culture negative. Code status: full DVT ppx: SCDs, ambulation FENGI: regular Dispo: tele unit Admission and Anticipated Discharge Date Admission Date: June 26, 2024 Subjective cough and breathing better since admission but still coughing a lot. wheezing has also improved. no fever. Physical Exam Physical Exam: Comfortable. Respiratory: Bilateral rhonchi. good air entry. no rales. few wheeze. Cardiovascular: RRR, no murmur, no edema Results & Data Results & Data Vital Signs (Past 12 Hours) Vital Signs Temp Pulse Pulse Resp BP Pulse Ox O2 Del Method 06/27/24 15:10 37 C 116 H 18 92/55 L Room Air 06/27/24 14:56 109 H 06/27/24 13:31 115 H 20 93 Room Air 06/27/24 11:32 37 C 108 H 17 101/60 97 Room Air 06/27/24 08:00 68 06/27/24 08:00 Room Air 06/27/24 07:48 37 C 82 18 99/64 L 94 Room Air 06/27/24 07:16 18 97 Room Air (1) Asthma exacerbation Asthma severity: unspecified severity Asthma persistence: persistent Qualified Code(s): J45.901 - Unspecified asthma with (acute) exacerbation (4) Leukocytosis Leukocytosis type: unspecified Qualified Code(s): D72.829 - Elevated white blood cell count, unspecified
[2024-06-27] MEDS: BUDESONIDE 0.5 MG/2 ML VIAL (PULMICORT) NEB SCH (19:34)
[2024-06-27] MEDS: MONTELUKAST SODIUM 10 MG TABLET PO SCH (21:15)
--- OUTSIDE RECORDS SUMMARY | 2024-06-28 03:13 | External Medical Summary | Continuity of Care Document ---
Author Name Unknown Organization [facility] [address] Address [address] [place], [place] [id number] Encounter [facility] [id number] Date(s): 06/18/24 - 06/18/24 [facility] [address] [facility] [address] [place] [address] [address] [place], [place] [phone] Encounter Diagnosis Coronavirus infection, unspecified(Final) - Elevated white blood cell count, unspecified(Final) - Discharge Disposition: Home or Self Care Attending Physician: MD Mittal Amy L Referring Physician: MD Mittal Amy L Allergies, Adverse Reactions, Alerts Substance Criticality Severity Reaction Reaction Severity Status Nickel redness, itching Act orestes Immunizations Given and Recorded Vaccine Date Status Refusal Reason hepatitis B adult vaccine 10/11/21 Recorded hepatitis B adult vaccine 07/29/21 Recorded hepatitis B adult vaccine 04/23/21 Recorded SARS-CoV-2 (COVID-19) mRNA-1273 vaccine 07/12/21 R ecorded SARS-CoV-2 (COVID-19) mRNA-1273 vaccine 08/14/20 R ecorded SARS-CoV-2 (COVID-19) mRNA-1273 vaccine 07/16/20 R ecorded human papillomavirus vaccine 06/04/18 Recorded human papillomavirus vaccine 05/02/18 Recorded tetanus/diphtheria/pertuss, acel (Tdap) 03/19/18 R ecorded Medications albuterol CFC free 90 mcg/inh MDI Start: 08/16/23 4:19:00 PM EST, 1 puff, inhaled, qid, Disp# 18 g, Refills: 1, PRN: as needed for wheezing, Pharmacy: [id number] Start Date: 08/16/23 Status: Ordered amoxicillin-clavulanate 875 mg-125 mg oral tablet Start: 06/17/24 1:05:00 PM EST, amoxicillin 1 tab, PO, q8h Start Date: 06/17/24 Status: Ordered predniSONE 10 mg oral tablet Start: 06/17/24 1:46:00 PM EST, See Instructions, Disp# 30 tab, with food take 4 tabs x 3 days, 3 tabs x 3 days, 2 tabs x 3 days, 1 tab x 3 days, Stop: 07/05/24 12:00:00 PM EST, Pharmacy: [id number] Start Date: 06/17/24 Stop Date: 07/05/24 Status: Ordered Symbicort 80 mcg-4.5 mcg/inh inhalation aerosol Start: 06/17/24 1:46:00 PM EST, 2 inh, inhaled, bid, Disp# 6.9 g, Refills: 1, Pharmacy: [id number] Start Date: 06/17/24 Status: Ordered Problem List No Known Problems Results Laboratory List Name Date Complete Blood Count w Differential (CBC ,DIFFH) 06/18/24 HIV Screen w Reflex (HIV AG/AB SCREENING ) 06/18/24 Most recent to oldest [Reference Range]: 1 HIV Ag/Ab Screening [NR] NONREACTIVE *Unknown* (06/18/24 11:01 AM) MPV [9.0-12.2 fL] 11.4 fL (06/18/24 11:01 AM) Immature Gran% 2.9 % (06/18/24 11:01 AM) Neut% 46.1 % (06/18/24 11:01 AM) Lymph% 39.2 % (06/18/24 11:01 AM) [place]% 8.2 % (06/18/24 11:01 AM) Baso% 0.8 % (06/18/24 11:01 AM) Eos% 2.8 % (06/18/24 11:01 AM) Immat Gran, Abs [0-0.4 K/uL] 0.26 K/uL (06/18/24 11:01 AM) Neut, Abs [2.0-7.7 K/uL] 4.19 K/uL (06/18/24 11:01 AM) Lymph, Abs [1.0-3.4 K/uL] 3.55 K/uL *HI* (06/18/24 11:01 AM) [place], Abs [0-1.0 K/uL] 0.74 K/uL (06/18/24 11:01 AM) Baso, Abs [0-0.1 K/uL] 0.07 K/uL (06/18/24 11:01 AM) Eos, Abs [0-0.5 K/uL] 0.25 K/uL (06/18/24 11:01 AM) Type of Diff: AUTO *Unknown* (06/18/24 11:01 AM) RDW [11.5-14.2 %] 12.1 % (06/18/24 11:01 AM) Hct [35-44 %] 45.6 % *HI* (06/18/24 11:01 AM) Hgb [11.7-15.0 g/dL] 15.5 g/dL *HI* (06/18/24 11:01 AM) MCH [28-33 pg] 31.3 pg (06/18/24 11:01 AM) MCHC [32-36 g/dL] 34.0 g/dL (06/18/24 11:01 AM) MCV [81-96 fL] 91.9 fL (06/18/24 11:01 AM) Plts [150-350 K/uL] 300 K/uL (06/18/24 11:01 AM) RBC [3.90-5.00 M/uL] 4.96 M/uL (06/18/24 11:01 AM) WBC [4.0-10.4 K/uL] 9.06 K/uL (06/18/24 11:01 AM) Social History Social History Type Response Smoking Status Never smoked cigaret niki Sex Female Sex Representation Female (finding) Patient Care team information Care Team Personnel Name: MD Dickson Cassandra Position: Physician - Derm Member Role: Lifetime Relationship [address]: [address] [place] [id number]
--- OUTSIDE RECORDS SUMMARY | 2024-06-28 03:13 | External Medical Summary | Continuity of Care Document ---
Author Name Unknown Organization [facility] [address] [address] [place] [phone] Encounter [facility] [id number] Date(s): 06/17/24 - 06/17/24 [facility] [address] [place] [id number] [phone] Encounter Diagnosis Body mass index [BMI] 29.0-29.9, adult(Discharge Diagnosis) - 06/17/24 Coronavirus infection(Discharge Diagnosis) - 06/17/24 Leukocytosis(Discharge Diagnosis) - 06/17/24 Discharge Disposition: Home or Self Care Attending Physician: MD Mittal Amy L Referring Physician: MD Mittal Amy L Allergies, Adverse Reactions, Alerts Substance Criticality Severity Reaction Reaction Severity Status Nickel redness, itching Act orestes Assessment and Plan Extracted from: Title:FCM - Bronchitis Author:MD Babmi, Adrian et Date:06/17/24 1.Coronavirus infection Acute w/ systemic symptoms or complicated injury Goal: Resolution Data: Reviewed_CXR, CBC,CMP, EDnoteOrdered CBCand HIV, scriptsas below Plan: There may be an underlying reactive airway disease that is contributing to her frequent respiratory viruses. In office spirometry - 330. Lung exam improvedafterduonebin office.Will give prednisone taper 40 x 3 days, 30 x 3 days, 20 x 3 days, 10 x 3 days. Continue Augmentin. Continue albuterol. Will also add Symbicort as well. Will likely need PFTs/formal spirometry in the future. F/u in 2 weeks. If still not improved will repeat CXR at that time. Immunizations Given and Recorded Vaccine Date Status [...] 1, PRN: as needed for wheezing, Pharmacy: [facility] Start Date: 08/16/23 Status: Ordered amoxicillin-clavulanate 875 [...] days, Stop: 07/05/24 12:00:00 PM EST, Pharmacy: [facility] Start Date: 06/17/24 Stop Date: 07/05/24 Status: Ordered Symbicort 80 mcg-4.5 mcg/inh inhalation aerosol Start: 06/17/24 1:46:00 PM EST, 2 inh, inhaled, bid, Disp# 6.9 g, Refills: 1, Pharmacy: [facility] Start Date: 06/17/24 Status: Ordered Mental Status 06/17/24 Barriers to Learning one year None evide nt Problem List No Chronic Problems Diagnosis Diagnosis Type Effective Dates Health Status Clinical Service Informant Coronavirus infection Discharge Diagnosis 06/17/24 Non-Specified Body mass index [BMI] 29.0-29.9, adult Discharge Diagnosis 06/17/24 Non-Specified Leukocytosis Discharge Diagnosis 06/17/24 Non-Specified Vital Signs Most recent to oldest [Reference Range]: 1 2 Height 164.2 cm (06/17/24 12:59 PM) Patient Weight 79.1 kg (06/17/24 12:59 PM) Body Mass Index 29.34 kg/m2 (06/17/24 12:59 PM) Temperature [36.5-37.9 DegC] 37.0 DegC (06/17/24 12:59 PM) Heart Rate 85 bpm (06/17/24 1:56 PM) 113 bpm (06/17/24 12:59 PM) Respiratory Rate 18 br/min (06/17/24 12:59 PM) Blood Pressure 104/76mmHg (06/17/24 12:59 PM) Social History Social History Type Response Smoking Status Never smoked cigaret niki Sex Female Sex Representation Female (finding) FCM Outpt Note * MD Owens Christopher: MODIFY MD Owens Christopher: MODIFY, MODIFY, MODIFY, MODIFY Event Display: FCM Outpt Note Authored Date: Assessment/Plan 1.Coronavirus infection Acute w/ systemic symptoms or complicated injury Goal: Resolution Data: Reviewed_CXR, CBC,CMP, EDnoteOrdered CBCand HIV, scriptsas below Plan: There may be an underlying reactive airway disease that is contributing to her frequent respiratory viruses. In office spirometry - 330. Lung exam improvedafterduonebin office.Will give prednisone taper 40 x 3 days, 30 x 3 days, 20 x 3 days, 10 x 3 days. Continue Augmentin. Continue albuterol. Will also add Symbicort as well. Will likely need PFTs/formal spirometry in the future.F/u in 2 weeks. If still not improved will repeat CXR at that time. Attestation Pt seen and examined in concert with Dr. Lacy, agree with history and physical as documented above. Plan reviewed in detail. Any corrections or additions are noted here - ongoing cough symptoms despite appropriate therapy for underlying infection. Concern for RAD apparent, agree w/ management andfollow up for PFT evaluation as noted with precautions for worsening/changing symptoms and instructions for follow up. Chief Complaint cough for 1 week, went to ER with bronchitis last Monday. Very SOB since then. still coughing. dry cough. History of Present Illness 28 y/o here for an ED follow up. Symptoms started 06/09 with scratchy throat. Developed cough, shortness of breath, chest pain, and fevers. Tmax 102. As SOB worsened she presented to the ED. She was seen in the ED 06/11 for cough, congestion, and shortness of breath. She was found to have one of the original strains of coronavirus. There were signs of bronchitis on imaging and a leukocytosis to 20 with a neutrophilic predominance. With these findings there was concern for a superimposed bacterial pneumonia.Theygave her anebulizer treatment and steroids.She was prescribed Azithromycin x 5 days and Augmentin x 10 days. Patient feels somewhat better, but continued SOB and cough. Having more difficulty with ADLs. Hashad multipleillnessesthisyear. Previouslyvery healthy.No history of eczema, asthma, or seasonal allergies. Has been ill approximately every 6 weeks.For the last year. Physical Exam Vitals & Measurements T:37.0C HR:85(Monitored) RR:18 BP:104/76 SpO2:96% HT:164.2cm WT:79.100kg(Dosing) WT:79.1kg BMI:29.34 PHQ2 Data(Data Documented on:06/17/2024 13:01) Emotional health assessment NEGATIVE Gen: non toxic appearing, coughing frequently, mildly increased work of breathing HEENT: AT NC CV: tachycardic, regularrhythm, no m/r/g clinically well perfused Resp: mildly decreased air movement, scattered rhonchi, maybesome slightwheezingdiffusely,frequent coughing,mildly increased work of breathing Abd: non-distended MSK: no obvious deformities Skin: no bruising or rashes noted Psych: appropriate mood and affect Neuro: alert and oriented Spirometer: 330 Medications albuterol(albuterol CFC free 90 mcg/inh MDI), 1 puff, inhaled, qid, PRN, 1 refills amoxicillin-clavulanate(amoxicillin-clavulanate 875 mg-125 mg oral tablet), 1 tab, PO, q8h Allergies Nickelredness, itching Social History Smoking Status Never smoked cigarettes Alcohol - Comments: social use Employment/School Status:Employed Description:[employer] Exercise - Comments: goes to gym twice a week, takes dance lessons Home/Environment Lives with:Spouse Nutrition/Health Type of diet:Regular - Comments: tried to avoid gluten d/t GI effects Sexual Sexually active:Yes Substance Abuse - Denies Substance Abuse Tobacco - Denies Tobacco Use Family History Cancer: MGM. Diabetes mellitus: Mother. Health Status Family Member(s) Immunizations Vaccine Date Status hepatitis B adult vaccine 10/11/2021 Recorded hepatitis B adult vaccine 07/29/2021 Recorded SARS-CoV-2 (COVID-19) mRNA-1273 vaccine 07/12/2021 Recorded hepatitis B adult vaccine 04/23/2021 Recorded SARS-CoV-2 (COVID-19) mRNA-1273 vaccine 08/14/2020 Recorded SARS-CoV-2 (COVID-19) mRNA-1273 vaccine 07/16/2020 Recorded human papillomavirus vaccine 06/04/2018 Recorded human papillomavirus vaccine 05/02/2018 Recorded tetanus/diphtheria/pertuss, acel (Tdap) 03/19/2018 Recorded Recommendations Health Maintenance Pending(in the next year) OverDue Adult Influenza Vaccine due01/14/24and every 1year Due Adult COVID-19 Vaccination due06/17/24Unknown Frequency Adult Folic Acid Supplementation due06/17/24and every 3year Adult Social Determinants of Health Screening due06/17/24Unknown Frequency Cervical Cancer Screening due06/17/24Unknown Frequency Hepatitis C Screening due06/17/24One-time only Lipid Screening due06/17/24Unknown Frequency Satisfied(in the past 1 year) Satisfied Body Mass Index on06/17/24.Satisfied by OSCAR Diaz Kathryn Electronic Signature on File Electronically Reviewed/Signed by: Betina Lacy MD Author Signature Dt/Tm:06/17/2024 02:03 PM Resident Department of Family Medicine Electronically Reviewed/Signed by: Tj Owens MD Cosigner Signature Dt/Tm: 06/19/2024 04:38PM Department of Family Medicine MP Patient Care team information Care Team Personnel Name: MD Dickson Cassandra Position: Physician - Derm Member Role: Lifetime Relationship Address: [address] [place] [id number] [place]
[2024-06-28 07:40] VITALS: RESP 20
--- NOTE | 2024-06-28 08:18 | Hospitalist Progress Note ---
Date of Service June 28, 2024 Assessment & Plan (1) Wheezing: Plan: Presenting with shortness of breath and chest tightness. Unclear why patient has been so refractory to treatment. Completed course of Augmentin and Azithromycin. Was on a prednisone taper - currently on 20 mg. Leukocytosis and elevated CRP. Given cefepime in the ED. Blood cultures drawn. Normal procal. May be an underlying reactive airway disease. Was started on Symbicort by PCP which has helped some. Consulted pulm - appreciate recs azithromycin x 5 for anti-inflammatory effect with negative procal would hold on additional abx for now schedule duonebs Q6H, incentive spirometry, PRN albuterol puffs, Breo QD methyl pred 40 mg BID gave 2 grams of Mg pulm consult - appreciate recs (2) Leukocytosis: Plan: Likely multifactorial with ongoing inflammatory process and recent steroid use. Neutrophilic predominance with left shift. Eosinophils normal. Will trend (3) Chest pain: Plan: Resolved after neb. No PE on CTA. Likely related to bronchospasms - management as above. (4) History of frequent upper respiratory infection: Plan: See above (5) Shortness of breath: Plan: See above (6) Bronchitis: Plan: See above Plan Code status: full DVT ppx: SCDs, ambulation FENGI: regular Dispo: tele unit Admission and Anticipated Discharge Date Admission Date: June 26, 2024 Results & Data Results & Data Vital Signs (Past 12 Hours) Vital Signs Temp Pulse Pulse Resp BP Pulse Ox O2 Del Method 06/28/24 07:40 36.5 C 102 H 20 109/50 L 92 Room Air 06/28/24 06:59 91 H 18 95 Room Air 06/28/24 05:44 73 06/28/24 03:47 36.6 C 76 16 111/67 95 Room Air 06/28/24 00:43 109 H 06/28/24 00:38 81 18 94 Room Air 06/28/24 00:25 Room Air 06/27/24 23:15 37 C 100 H 16 97/59 L 93 Room Air (2) Leukocytosis Leukocytosis type: unspecified Qualified Code(s): D72.829 - Elevated white blood cell count, unspecified
[2024-06-28] MEDS: CHLORASEPTIC (PHENOL) 1.4% SOLN 180 ML BTL MT PRN (09:37)
[2024-06-28 09:44] LABS: Basophils # (auto) 0.04 K/uL (0.00-0.20); Basophils % (auto) 0.2 %; Hematocrit (blood only) 43.4 % (37.0-47.0); Hemoglobin 14.6 g/dl (12.0-16.0); Immature Granulocytes # (auto) 0.22 K/uL (0.01-0.20); Immature Granulocytes % (auto) 1.1 %; Lymphocytes # (auto) 2.27 K/uL (1.20-3.40); Lymphocytes % (auto) 11.6 %; Mean Corpuscular Hemoglobin 30.5 pg (25.0-34.0); Mean Corpuscular Hgb Conc 33.6 g/dL (32.0-36.0); Mean Corpuscular Volume 90.6 fL (80.0-100.0); Mean Platelet Volume 12.1 fL (9.4-12.4); Monocytes # (auto) 0.81 K/uL (0.11-0.59); Monocytes % (auto) 4.2 %; Neutrophils # (auto) 16.15 K/uL (1.40-6.50); Neutrophils % (auto) 82.9 %; Platelet Count 260 K/uL (130-400); RDW Coefficient of Variation 13.2 % (11.5-14.5); RDW Standard Deviation 43.3 fL (36.4-46.3); Red Blood Count 4.79 M/uL (4.20-5.40); White Blood Count 19.49 K/ul (4.8-10.8)
[2024-06-28 09:53] LABS: BUN Creatinine Ratio 24.1 (10-20); Creatinine Clr Calc Pharmacy 107.7 ml/min
--- NOTE | 2024-06-28 11:31 | Discharge Summary ---
Date of Service June 28, 2024 Admission HPI Per Admitting Provider 28 y/o female here for evaluation of shortness of breath. Patient was diagnosed with coronavirus 06/11/2024 and bronchitis. Was treated with 10 days of Augmentin, prednisone taper, and Azithromycin. Completed antib iotic course Monday. On 20 mg tabs of prednisone at present. Was feeling better, but symptoms worsened overnight. She woke up with chest pain/tightness, wheezing, and trouble breathing. Did have some improvement with albuterol inhaler, but symptoms returned this morning. She was seen by Tuyet Whatley at [facility] earlier today and was given a neb without significant improvement in symptoms, which prompted her evaluation in the ED. Chest tightness/pain has resolved. No fevers, but has had chills. Patient with frequent URIs over the last year since having Covid in April 2023. Diagnosed with OG coronavirus with bronchitis in May and has not gotten much better. Patient previously healthy. No personal or family history of asthma or atopic triad. Was recently started on Symbicort by PCP for presumed underlying reactive airway disease. Admission Exam Per Admitting Provider Gen: well appearing patient in NAD HEENT: AT NC MMM Resp: tachypneic, diffuse wheezing, decreased air movement throughout, frequent coughing, scattered rhonchi with some crackles as well, mildly increased work of breathing CV: RRR no m/r/g clinically well perfused Abd: non-distended MSK: no obvious deformities Skin: no rashes or bruising Neuro: alert and oriented Psych: appropriate mood and affect Principal Diagnosis Asthma exacerbation, Tracheobronchitis Discharge Exam Constitutional: well-appearing, no acute distress HEENT: NCAT, no conjunctival injection CV: regular rhythm, no murmur appreciated, extremities well-perfused, no LE edema Resp: CTABL, no wheezes/rales/rhonchi appreciated, no increased work of breathing GI: soft, nondistended, nontender, BS normoactive MSK: no gross deformities appreciated Skin: warm, dry, no rash appreciated Neuro: alert, oriented, no focal neurologic deficit appreciated Discharge Data Allergies Allergy/AdvReac Type Severity Reaction Status Date / Time nickel Allergy Rash Verified 06/26/24 17:37 Consultations 06/26/24 17:13 ED Decision to Admit Stat 06/26/24 20:53 Consult Pulmonology Routine Per Pulmonology: (1) Asthma exacerbation: I suspect the patient has underlying asthma and possible tracheobronchitis. She will need outpatient PFTs, exhaled nitric oxide testing and allergy testing. Recommend she follow-up with allergy and immunology and also pulmonary medicine. For the time being, agree with IV steroids and likely transition to p.o. steroids starting tomorrow. Will transition her from powdered Breo Ellipta inhaler to nebulized budesonide and formoterol. Upon discharge, I would recommend escalating her therapy to high-dose Symbicort 160/4.52 puffs twice daily. Will also add Singulair and Zyrtec to her regimen. Agree with az ithromycin to cover for atypical organisms. Asthma severity: unspecified severity Asthma persistence: persistent Qualified Code(s): J45.901 - Unspecified asthma with (acute) exacerbation (2) Subacute cough: Likely secondary to poorly controlled asthma. Codeine and guaifenesin ordered for refractory cough Ordered Studies 06/26/24 14:00 CT angio chest PE protocol Stat Hospital Course (1) Wheezing: (2) Leukocytosis: (3) Chest pain: (4) History of frequent upper respiratory infection: (5) Shortness of breath: (6) Bronchitis: Plan Acute asthma exacerbation - Tracheobronchitis Presenting with shortness of breath and chest tightness. Recent treatment with course of Augmentin and Azithromycin. Was on a prednisone taper - last 2 days of 20 mg left. Was also started on Symbicort by PCP which has helped some. In ED - Blood cx negative. Normal procal. Received IV mag and dose of cefepime and azithromycin. Seen by pulmonary. Will be discharged with duonebs and albuterol q6h PRN. Prescription for nebulizer provided to patient Breo discontinued Will start high-dose Symbicort 160/4.5 2 puffs twice daily on discharge Recieved methyl pred 40 mg BID - will dc on prednisone taper beginning with 50mg Added singulair and zyrtec. Should f/u with allergy clinic and pulmonary as outpatient. Needs outpatient PFT, exhaled NO test and allergy clinic. WBC elevation from recent steroids and possibly reactive as well. Cultures negative. Total Time Total Time Spent Total Time Spent (In Minutes): see attending documentation Discharge Plan Discharge Items Patient Disposition: Home - Self-Care Reason For Visit: SOB Discharge Diagnosis: Asthma, tracheobronchitis Activity: Resume your previous activity Activity Comment: as tolerated Non-emergency contact: Primary Care Provider and Histopath Tech Call non-emergency contact if: you have any medication questions and your symptoms worsen Follow-up/Referrals: Tanner Gannon MD [Physician] - Sasha Zavala PA-C [Primary Care Provider] - Mukul Monreal MD [Physician] - Diet: Regular Addtl Attending Provider Instructions: You were admitted to the hospital for shortness of breath. You were treated with steroids and inhalers. You were not found to have an infection. You were seen by pulmonology while you were here. He thinks that you have asthma. A discharge summary will be sent to your primary care physician to ensure continuity of care. Please bring this discharge summary with you to your next office appointment so that your provider can review it at that time. Follow-up appointments: Make a follow-up appointment with your PCP within the next week. It is very important that you follow up with them shortly after discharge from the hospital. We will request an appointment with pulmonology. If you do not hear from their office by the middle of next week you can contact them at . We will request an appointment with allergy. If you do not hear from their office by the middle of next week you can contact them at . Keep all your follow-up appointments as already scheduled. If you cannot make an appointment, notify your provider. Medications: Your medication list has been reviewed and reconciled upon discharge to ensure accuracy and continuity of care. An updated list of all your medications is included with your hospital discharge paperwork. Please review this list closely, and make note of any changes. If you have any issues filling these prescriptions, please call [phone] and ask to leave a message for Dr. Roni Newton. Take your medications as instructed; do not skip a dose of your medicines. Make sure all of your doctors know every medicine you are taking (including mipk-jvu-detbttd medicines, vitamins, and supplements). Call your primary care provider before taking any new medicines (including qbtm-[id number] medicines, vitamins, and supplements), because some of these may interact with your current medications, or may make your symptoms worse. Tell your primary care provider if you cannot afford your medications. CONTACT YOUR PRIMARY CARE PROVIDER if you experience any of the following: Increased shortness of breath Increased wheezing Difficulty following your treatment plan, or difficulty taking medications CALL 911 OR GO TO THE EMERGENCY DEPARTMENT if you experience any of the following: Sudden, severe abdominal pain or nausea/vomiting Severe chest pain, or chest pain that radiates (moves) to your jaw or arm Sudden, severe shortness of breath or difficulty breathing Thank you for allowing us to participate in your care. Pending Studies at Discharge: No Stand-Alone Forms: My [facility], Work/School Release Medications and DC Order Prescriptions: New cetirizine 10 mg Tablet 10 mg PO DAILY Qty: 30 0RF montelukast 10 mg Tablet 10 mg PO HS Qty: 30 0RF albuterol sulfate [Ventolin HFA] 90 mcg/actuation Hfa Aerosol Inhaler 2 puff inhalation Q4R PRN (Reason: shortness of breath or wheezing) Qty: 6.7 0RF budesonide-formoterol [Symbicort] 160-4.5 mcg/actuation HFA aerosol inhaler 2 inh inhalation BID Qty: 10.2 0RF prednisone 10 mg tablet 10 mg PO DIRECTED Qty: 30 0RF Rx Instructions: Take 5 tabs x 2 days, 4 tabs x 2 days, 3 tabs x 2 days, 2 tabs x 2 days, 1 tab x 2 days ipratropium-albuterol 0.5 mg-3 mg(2.5 mg base)/3 mL solution for nebulization 3 ml inhalation Q6H PRN (Reason: wheezing) Qty: 90 0RF Discontinued prednisone 10 mg tablet See Rx Instructions .ROUTE .COMPLEX Rx Instructions: Take 40mg by mouth once daily x 3 days; 30mg x 3 days; 20mg x 3 days; 10mg x 3 days budesonide-formoterol 80-4.5 mcg/actuation HFA aerosol inhaler 2 puff INHALATION BID Discharge Orders: Discharge Order (Routine); Ordered 06/28/24 Ordered By: Roni Rodas/Other Patient Handouts: Prednisone Oral Tablet, Montelukast Oral Tablet, Budesonide/Formoterol Metered Dose Inhaler, Albuterol/Ipratropium Inhalation Solution, Albuterol Metered Dose Inhaler, Cetirizine Oral Tablet, Using a Nebulizer (Adult), Controlling Your Asthma, Nebulizer Mouthpiece Steps, Asthma, Inhalers and Nebulizers for Asthma Admission Data Admit Date/Time: 06/26/24 18:03 Attending Provider: Tala Zhao Admit Provider: Betina Lacy Primary Care Provider: Sasha Zavala Other Providers: Martín Vaughn; Tanner Gannon Other Interventions: Discharge Summary Assessment (RN) Last Done: 06/28/24 12:42 Supervising Physician Co-Signing Physician Notes Attending Physician Supervision Note: I independently interviewed and examined the patient and verified the mendez history and physical, reviewed labs and image studies and agree with findings and care plan noted above. Resident Activity Tracking Resident Involvement: Resident Care Provided Care Provided: Adult Hospital Medicine
[2024-06-28 12:31] VITALS: BP 102/64; TEMP 98.2; O2SAT 93
[2024-06-28 12:45] VITALS: PULSE 89
== END 2024-06-28 13:05 | disposition home or self-care (01) | DRG 203 ==
LOC: SUATTDRO → ED 13:20 → SUATTDRO 18:03 → 2N 18:03
DX: Z86.16 Personal history of COVID-19; Z79.899 Other long term (current) drug therapy; D72.829 Elevated white blood cell count, unspecified; J45.901 Unspecified asthma with (acute) exacerbation